=== PATIENT | female | born 1970 | race Caucasian/White ===

== ENCOUNTER 2022-08-11 13:00 | Emergency (ER) | payer BC ==
[2022-08-11 14:03] LABS: CARBON DIOXIDE,CO2 23.9 mmol/L (21.0-32.0); POTASSIUM,K 3.5 mmol/L (3.5-5.1)
[2022-08-11] MEDS ORDERED: Iopamidol 755 Mg/ML 100 ML Bottle IVPUSH ONE (15:55)
== END 2022-08-11 16:53 | disposition home or self-care (01) ==
LOC: MW.ED 13:00
DX: R04.2 Hemoptysis (principal); Z91.018 Allergy to other foods; Z20.822 Contact with and (suspected) exposure to COVID-19
CPT/HCPCS: 36415; 70498; 71045; 80053; 80307; 83690; 83735; 84484; 85025; 85610; 85730; 87635; 99285; Q9967; 99284; U0002

== ENCOUNTER 2022-11-27 16:58 | Emergency (ER) | payer BC ==
[2022-11-27] MEDS ORDERED: Sodium Chloride 0.9% 1,000 ML IV ONE (18:09)
[2022-11-27] MEDS ORDERED: Folic Acid 1 MG Tab PO ONE (18:10)
[2022-11-27] MEDS ORDERED: Thiamine 100 MG in Sodium Chloride 0.9% 100 ML IV ONE (18:10)
[2022-11-27] MEDS: Sodium Chloride 0.9% 2.5 ML Syringe FLUSH PRN ×2 (18:44→19:16)
[2022-11-27] MEDS: Sodium Chloride 0.9% 10 ML Syringe FLUSH PRN ×2 (18:44→19:16)
[2022-11-27 19:27] LABS: ACETAMINOPHEN <2.0 ug/mL; BLOOD UREA NITROGEN,BUN 13 mg/dL (7.0-18.0); CARBON DIOXIDE,CO2 29.1 mmol/L (21.0-32.0); CHLORIDE,CL 101 mmol/L (98-107); GLUCOSE RANDOM 96 mg/dL (74-106); POTASSIUM,K 3.4 mmol/L (3.5-5.1); SODIUM,NA 146 mmol/L (136-145)
[2022-11-27 19:37] LABS: ESTIMATED GFR 76 mL/min (>60)
== END 2022-11-27 20:45 | disposition left against medical advice (07) ==
LOC: MW.ED 16:58
DX: F10.10 Alcohol abuse, uncomplicated (principal); Z91.018 Allergy to other foods; Z20.822 Contact with and (suspected) exposure to COVID-19; Y90.8 Blood alcohol level of 240 mg/100 ml or more
CPT/HCPCS: 36415; 80053; 80143; 80179; 80305; 80307; 81001; 83735; 84443; 85025; 87635; 93005; 96361; 96365; 99284; A9270; J3411; J3490; J7030; 99283; U0002

== ENCOUNTER 2023-04-10 18:46 | Emergency (ER) | payer SELFPAY ==
[2023-04-10 19:14] LABS: BASOPHILS ABSOLUTE AUTO 0.1 K/uL (0.0-0.1); EOSINOPHILS PERCENT AUTO 0.2 % (0.0-7.0); HEMATOCRIT 40.6 % (36.0-46.0); HEMOGLOBIN 13.9 g/dL (12.0-16.0); LYMPHOCYTES ABSOLUTE AUTO 3.3 K/uL (0.6-2.4); LYMPHOCYTES PERCENT AUTO 57.5 % (16.0-40.0); MEAN CORPUSCULAR HEMOGLOBIN 30.9 pg (27.0-32.0); MEAN CORPUSCULAR HGB CONC 34.2 g/dL (31.0-37.0); MEAN CORPUSCULAR VOLUME 90.2 fL (80.0-98.0); MONOCYTES ABSOLUTE AUTO 0.3 K/uL (0.0-0.8); MONOCYTES PERCENT AUTO 4.9 % (0.0-15.0); NEUTROPHILS ABSOLUTE AUTO 2.1 K/uL (1.4-5.7); NEUTROPHILS PERCENT AUTO 36.4 % (48.0-80.0); NRBC ABSOLUTE 0 K/uL; PLATELET COUNT,PLT 193 K/uL (150-400); WHITE BLOOD CELL COUNT,WBC 5.72 K/uL (4.0-11.0)
[2023-04-10 19:40] LABS: ALBUMIN 3.7 g/dL (3.4-5.0); BILIRUBIN TOTAL 0.4 mg/dL (0.2-1.0); CALCIUM 7.5 mg/dL (8.5-10.1); CARBON DIOXIDE,CO2 27.5 mmol/L (21.0-32.0); CREATININE 0.8 mg/dL (0.6-1.0); EST CRCL DRUG DOSING (CG) 73.18 mL/min; POTASSIUM,K 2.8 mmol/L (3.5-5.1); PROTEIN TOTAL,TP 7.4 g/dL (6.4-8.2)
[2023-04-10] MEDS ORDERED: Potassium Chloride 20 MEQ Tab.ER PO ONE (19:53)
== END 2023-04-10 20:43 | disposition left against medical advice (07) ==
LOC: MW.ED 18:46
DX: E87.6 Hypokalemia (principal); T76.21XA Adult sexual abuse, suspected, initial encounter; F10.10 Alcohol abuse, uncomplicated; Y90.8 Blood alcohol level of 240 mg/100 ml or more; Z91.018 Allergy to other foods
CPT/HCPCS: 36415; 80053; 80307; 83690; 84484; 85025; 93005; 99285; A9270; 93010; 99284